=== PATIENT | male | born 1995 | race Caucasian/White ===

== ENCOUNTER 2024-08-02 12:52 | Emergency (ER) | payer BC, SELFPAY ==
[2024-08-02 12:53] VITALS: BP 140/89
[2024-08-02 13:52] VITALS: BMI 28.7
[2024-08-02] MEDS: NSS 1000 IV (14:03)
[2024-08-02] MEDS: TORADOL 15 MG IV (14:03)
[2024-08-02] MEDS: ZOFRAN 4 MG IV (14:04)
[2024-08-02 14:10] VITALS: BP 116/79
[2024-08-02 14:13] LABS: % Basophils 0.3 % (0-2); % Eosinophils 0.1 % (0-6); % Immature Granulocytes 0.2 % (0-0.5); % Lymphocytes 3.5 % (20.5-51.1); % Monocytes 3.7 % (1.7-9.3); % Neutrophils 92.2 % (42.2-75.2); Absolute Lymphocytes 0.3 10^3/uL (1.2-3.4); Absolute Monocytes 0.3 10^3/uL (0.1-0.6); Absolute Neutrophils 8.2 10^3/uL (1.4-6.5); Hematocrit 43.7 % (39.0-52.0); Hemoglobin 15.2 g/dL (13.0-18.0); Mean Corp Hgb Conc. 34.8 g/dL (33.0-37.0); Mean Corpuscular Hgb 28.3 pg (27.0-31.0); Mean Corpuscular Volume 81.4 fL (80.0-94.0); Mean Platelet Volume 9.3 fL (7.4-10.4); Nucleated Red Blood Cells % 0 % (-); Platelet Count 261 10^3/uL (130-400); Red Blood Cell Count 5.37 10^6/uL (4.70-6.10); Red Cell Dist. Width 12.5 % (11.5-14.5); White Blood Cell Count 8.9 10^3/uL (4.8-10.8)
--- NOTE | 2024-08-02 14:16 | ED.GENMED ---
History of Present Illness
General
Chief Complaint: Abdominal Symptoms
Time Seen by Provider: 08/02/24 13:30
History of Present Illness
History of Present Illness:
Patient presents to the emergency department with nausea vomiting diarrhea. Symptoms started overnight suddenly with nausea. Notes that diarrhea began this morning. It is watery without blood. No fever. Endorses crampy abdominal pain
nonlocalizing.
Phy Exam
Physical Exam
Physical Exam:
GENERAL APPEARANCE: NAD, well developed/ well nourished
EYES lids/conjunctiva normal
EARS/NOSE/THROAT Mucous membranes moist, uvula midline without oral pharyngeal erythema, exudate or swelling
HEAD/NECK normocephalic atraumatic, neck is supple.
RESPIRATORY respiratory effort normal, speaks in full sentences, no accessory muscle use. Lungs clear to auscultation without rhonchi, wheezes, rales
CARDIAC Regular rate and rhythm, no edema.
ABDOMINAL Soft, mild diffuse tenderness. No pulsatile masses on exam, rebound tenderness, Dickinson sign or pain over Mcburney's point.
MUSCLES/EXTREMITIES No abnormal range of motion, no swelling.
SKIN Warm, pink and dry. No rashes
NEUROLOGICAL Speech is clear and appropriate. Normal level of consciousness. 5/5 strength in all extremities.
PSYCH Normal mood and affect. Judgement/competence is appropriate
Course
Orders/Labs/Results
Orders:
Orders
08/02/24 13:42
Ketorolac [Toradol] 15 mg IV NOW STA
Ondansetron Injectable [Zofran] 4 mg IV NOW STA
08/02/24 13:44
0.9% Sodium Chloride 1000 ml [Nss] 1,000 ml IV BOLUS
08/02/24 13:53
CRP [C-Reactive Protein] Urgent
Complete Blood Count/With Diff Urgent
Comprehensive Metabolic Panel Urgent
Lipase Urgent
Abnormal Lab Results
08/02/24
13:53
Absolute Neuts (auto) 8.2 H 10^3/uL
(1.4-6.5)
Absolute Lymphs (auto) 0.3 L 10^3/uL
(1.2-3.4)
Neutrophils % 92.2 H %
(42.2-75.2)
Lymphocytes % 3.5 L %
(20.5-51.1)
Glucose 103 H mg/dl
(70-99)
Calcium 10.3 H mg/dl
(8.4-10.2)
Total Bilirubin 1.6 H mg/dl
(0.2-1.3)
C-Reactive Protein 31.60 H mg/L
(0.0-10.00)
Albumin 5.5 H g/dl
(3.5-5.0)
08/02/24 13:53
08/02/24 13:53
Vital Signs
Initial and Last Documented VS:
Initial Vital Signs
Temp Pulse Resp BP Pulse Ox
98.4 F 91 18 140/89 98
08/02/24 12:53 08/02/24 12:53 08/02/24 12:53 08/02/24 12:53 08/02/24 12:53
Last Documented Vital Signs
Temp Pulse Resp BP Pulse Ox
98.4 F 91 18 119/71 98
08/02/24 12:53 08/02/24 12:53 08/02/24 12:53 08/02/24 15:00 08/02/24 15:30
*Critical Care Note
Total Time (30-74mins, 75-104mins- exclusive of procedures): Not Applicable
ED Attending Note
ED Attending Note
ED Attending Note:
Patient symptoms have resolved at this time. He is feeling 100% better and is requesting discharge. Suspect gastroenteritis given lack of tenderness without leukocytosis. Elevated CRP noted. Strict return precautions given to patient for
worsening pain especially localizing to a particular quadrant of his abdomen
-
Portions of this chart may have been created with voice recognition software.� Occasional wrong word or��sound alike� substitutions may have occurred due to the inherent limitations of voice recognition software.
Discharge Plan
Departure
Patient Disposition: Home (Routine Discharge)
Date of Disposition: 08/02/24
Time of Disposition: 15:31
Patient with high blood pressure during this ER visit?: Yes
Discharge Problem:
Gastroenteritis
Instructions: Abdominal Pain
Prescriptions:
New
ondansetron 4 mg tablet,disintegrating
4 mg PO TIDPRN PRN (Reason: nausea/vomiting) Qty: 10 0RF
Referrals:
Esau Lopez MD [Family Provider] -
Activity Restrictions/Additional Instructions:
please return to ER if you develop severe abdominal pain (especially localizing to a particular point on the abdomen), fevers, or worsening symptoms
Interventions
Interventions:
*Risk Screen - Suicide Last Done: 08/02/24 12:53
*General Assessment Last Done: 08/02/24 12:53
*Neglect/Abuse Screening Last Done: 08/02/24 15:41
ED- Fall Risk Assessment Last Done: 08/02/24 13:52
*ED COVID-19 Vaccine History Last Done: 08/02/24 12:53
*Nursing Disposition Last Done: 08/02/24 15:41
BQ-Wetztn-Jzpqqcgrag Assessment Last Done: 08/02/24 13:51
Discharge Date and Time
Discharge Date/Time: 08/02/24 15:53
Print Language: ARMENIAN
[2024-08-02 14:31] LABS: ALT (SGPT) 36 U/L (0-50); AST (SGOT) 25 U/L (17-59); Albumin 5.5 g/dl (3.5-5.0); Alkaline Phosphatase 77 U/L (38-126); Blood Urea Nitrogen 19 mg/dl (9-20); Calcium 10.3 mg/dl (8.4-10.2); Carbon Dioxide 22 mmol/L (22-30); Chloride 104 mmol/L (98-107); Estimated Creatinine Clearance 114 ml/min; Glucose 103 mg/dl (70-99); Lipase 56 U/L (23-300); Potassium 4.1 mmol/L (3.5-5.1); Sodium 142 mmol/L (135-145); Total Bilirubin 1.6 mg/dl (0.2-1.3); Total Protein 8.2 g/dl (6.3-8.2); eGFR > 60.00
[2024-08-02 15:00] VITALS: BP 119/71
== END 2024-08-02 15:53 | disposition home or self-care (01) ==
LOC: EMR 12:52
PROVIDERS: EMERGENCY PHYSICIAN Emergency Medicine; FAMILY PHYSICIAN Family Medicine
DX: K52.9 Noninfective gastroenteritis and colitis, unspecified (principal); R03.0 Elevated blood-pressure reading, without diagnosis of hypertension; Z88.0 Allergy status to penicillin
CPT/HCPCS: 99284; 96374; 96375; 96361; 80053; 83690; 85025; 86140